=== PATIENT | female | born 1950 | race Caucasian/White ===

== ENCOUNTER 2019-02-16 18:46 | Emergency (ER) | payer MEDICARE, OTHER, SELFPAY ==
[2019-02-16 18:47] VITALS: BP 137/78; PULSE 110; RESP 14; TEMP 36.4; O2SAT 96
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
== END 2019-02-16 19:25 | disposition home or self-care (01) ==
LOC: ER 20:14
PROVIDERS: Emergency Provider Physician Assistant; PCP Nurse Practitioner Family
DX: S60.221A Contusion of right hand, initial encounter (principal); V48.5XXA Car driver injured in noncollision transport accident in traffic accident, initial encounter; Z79.01 Long term (current) use of anticoagulants
CPT/HCPCS: 99283